=== PATIENT | male | born 1995 | race Caucasian/White ===

== ENCOUNTER 2017-02-21 00:14 | Emergency (ER) | payer BC ==
[~2017-02-21] VITALS: Ht 190.5 cm; Wt 100.6 kg
[2017-02-21 01:05] LABS: HEMATOCRIT 40.8 % (38.0-50.0); MCH 28.9 PG (29.0-34.0); MCHC 34.3 G/DL (30.0-36.0); MCV 84.3 FL (86-99); MEAN PLAT.VOLUME 9.8 uM^3 (9.0-12.4); PLATELET COUNT 193 K/uL (156-360); RBC DIS.WIDTH-CV 12.4 % (11.8-14.6); RBC DIS.WIDTH-SD 37.8 % (39-53); RED BLOOD COUNT 4.84 M/uL (4.00-5.50); WHITE BLOOD COUNT 11.1 K/uL (4.1-10.2)
[2017-02-21 01:20] LABS: CHLORIDE 105 mEq/L (99-109); POTASSIUM 3.7 mEq/L (3.7-5.4); SODIUM 142 mEq/L (136-147)
[2017-02-21 01:21] LABS: GLUCOSE 106 mg/dL (70-99)
[2017-02-21 01:23] LABS: ANION GAP 11 MEQ/L (2-14)
[2017-02-21 01:25] LABS: GFR ESTIMATE (CALCULATED) > 59 mL/min/
[2017-02-21 01:26] LABS: UREA NITROGEN (BUN) 16 mg/dL (9-23)
[2017-02-21] MEDS ORDERED: PREDNISONE20 MG PO (01:48)
[2017-02-21] MEDS ORDERED: ZITHROMAX Z-PA250 MG PO (01:48)
[2017-02-21] MEDS ORDERED: TESSALON PERLE100 MG PO (01:48)
[2017-02-21 02:05] VITALS: BP 110/62
[2017-02-21] MEDS ORDERED: SERTRALINE HCL50 MG PO (02:22)
== END 2017-02-21 02:22 | disposition home or self-care (01) ==
LOC: EME 00:14
DX: R05 Cough (principal); R09.3 Abnormal sputum; D72.829 Elevated white blood cell count, unspecified; R50.9 Fever, unspecified; R07.9 Chest pain, unspecified
CPT/HCPCS: 71020; 80048; 85027; 99281; 99283; J7512